=== PATIENT | male | born 1990 | race Two or more races ===

== ENCOUNTER 2019-09-21 22:19 | Emergency (ER) | payer SELFPAY ==
[~2019-09-21] VITALS: Ht 170.2 cm; Wt 95.5 kg
[2019-09-22 00:16] LABS: BASOPHILS % 0.2 % (0.0-2.0); EOSINOPHILS % 0.6 % (0.0-5.0); HEMATOCRIT. 45.3 % (42.0-52.0); HEMOGLOBIN. 15.2 g/dL (14.0-18.0); LYMPHOCYTES % 19.4 % (20.0-50.0); MEAN CORPUSCULAR VOLUME 92.5 fL (80.0-94.0); MEAN PLATELET VOLUME 10.5 fl (7.4-10.4); NEUTROPHILS % 69.8 % (40.0-76.0); PLATELET 194 x1000/uL (130-400); RED CELL DISTRIBUTION WIDTH 13.9 % (11.6-14.6)
[2019-09-22 00:19] LABS: CLARITY URINE CLEAR (CLEAR); COLOR URINE YELLOW (YELLOW); KETONES URINE NEGATIVE (NEGATIVE); LEUKOCYTE ESTERASE URINE NEGATIVE (NEGATIVE); NITRITE URINE NEGATIVE (NEGATIVE); OCCULT BLOOD URINE NEGATIVE (NEGATIVE); PH URINE 7.5 (4.5-8.0); PROTEIN URINE NEGATIVE (NEGATIVE); SPECIFIC GRAVITY URINE 1.023 (1.005-1.030)
[2019-09-22 00:22] LABS: CHLORIDE 101 mEq/L (98-107)
[2019-09-22] MEDS ORDERED: SODIUM CHLORIDE 0.9% 1,000 ML IV ONE (00:53)
[2019-09-22] MEDS ORDERED: KETOROLAC 30MG/ML VIAL IV STA (00:53)
[2019-09-22] MEDS ORDERED: DIATR MEGLU/DIATRIZOATE SOLN 30ML ONE (01:30)
[2019-09-22 05:02] VITALS: BP 122/81
== END 2019-09-22 05:09 | disposition home or self-care (01) ==
LOC: ER 22:19
DX: K57.32 Diverticulitis of large intestine without perforation or abscess without bleeding (principal); R03.0 Elevated blood-pressure reading, without diagnosis of hypertension
CPT/HCPCS: 36415; 74176; 76700; 80053; 81003; 83690; 85025; 96374; 99285; J1885; J7030; Q9963

== ENCOUNTER 2021-01-02 17:44 | Emergency (ER) | payer SELFPAY ==
[~2021-01-02] VITALS: Ht 172.7 cm; Wt 98.0 kg
[2021-01-02 18:00] VITALS: BP 135/85
[2021-01-02] MEDS ORDERED: ACETAMINOPHEN 325MG TABLET PO ONE (19:15)
[2021-01-02] MEDS ORDERED: LIDOCAINE HCL 1% 20ML VIAL (Pyxis) INJ INFIL ONE (19:15)
[2021-01-02] MEDS ORDERED: IBUPROFEN 800MG TABLET PO ONE (19:15)
[2021-01-02] MEDS ORDERED: TETANUS, DIPHTHERIA, PERTUSSIS VAC/PF 0.5ML (>7YR OLD) IM ONE (19:45)
== END 2021-01-02 21:25 | disposition home or self-care (01) ==
LOC: ER 17:44
DX: S61.412A Laceration without foreign body of left hand, initial encounter (principal); W45.8XXA Other foreign body or object entering through skin, initial encounter; Y93.89 Activity, other specified; Y92.89 Other specified places as the place of occurrence of the external cause; Y99.8 Other external cause status
CPT/HCPCS: 90471; 90715; 99283; J3490